=== PATIENT | female | born 1975 | race Caucasian/White ===

== ENCOUNTER 2018-07-20 01:12 | Outpatient (CLI) | payer MEDICAID, SELFPAY ==
--- NOTE | 2018-07-20 12:09 | DI.RAD_ITS ---
SYMPTOMS/DIAGNOSIS: THORACIC REGION BACK PAIN, M54.6, LOW BACK PAIN, M54.5 T-SPINE AND LUMBAR SPINE: T-SPINE: The bony structures are normally mineralized. The vertebral bodies are intact. The posterior elements are intact. There is no evidence of gross disc space narrowing. Hypertrophic endplate changes are of mild degree and are most pronounced in the lower dorsal region. The paravertebral soft tissues are intact. SUMMARY: A mild levorotoscoliotic deformity of the lower dorsal and lumbar spine is identified on the T-spine and LS spine images obtained today. There are mild degenerative changes. Please see the above discussion. LUMBAR SPINE: The vertebral bodies are intact, save for what appears to represent a fracture of the left transverse process of L3, which is of indeterminate age but probably represents an old abnormality. The pedicles, spinous and transverse processes are otherwise unremarkable. There is evidence of facet joint DJD and no evidence of gross disc space narrowing. There is no evidence of spondylolysis or spondylolisthesis. Note is made of a lower dorsal and upper lumbar mild rotoscoliosis. The sacrum and sacroiliac joints are intact. SUMMARY: Mild degenerative changes are identified in this patient with a mild scoliotic deformity. There is a vertical fracture involving the left transverse process of L3, which probably represents an old abnormality; however, the finding is to be correlated with the patient's clinical status.
== END 2018-07-20 01:32 ==
PROVIDERS: PCP Specialist/Technologist Athletic Trainer; Visit Provider Specialist/Technologist Athletic Trainer
DX: M54.6 Pain in thoracic spine (principal); M54.5 Low back pain; M47.815 Spondylosis without myelopathy or radiculopathy, thoracolumbar region; S32.039D Unspecified fracture of third lumbar vertebra, subsequent encounter for fracture with routine healing
CPT/HCPCS: 72072; 72110

== ENCOUNTER 2019-11-21 09:33 | Outpatient (REF) | payer MEDICAID, SELFPAY ==
[2019-11-21 18:39] LABS: WBC Negative HPF (0-5)
[2019-11-21 18:40] LABS: Bacteria Many HPF (Negative); C & S Indicated? No/Sq. Contamination; Casts Negative LPF (Negative); Crystals Negative HPF (Negative); Epithelial Cells Many HPF (Negative); Mucus Negative (Negative); Other Cells Negative (Negative); RBC Negative HPF (0-2)
[2019-11-21 18:45] LABS: BUN 9 mg/dL (7-18); C-Reactive Protein 0.19 mg/dL (0.0-0.3); CREATININE 1.07 mg/dL (0.55-1.02); Chloride 105 mmol/L (98-107); Estimated GFR 55.45 (mL/min/1.73m2); Glucose 99 mg/dL (74-106); Potassium 4.3 mmol/L (3.5-5.1); Sodium 139 mmol/L (136-145)
[2019-11-21 19:16] LABS: ESR 7 mm/hr (0-20)
[2019-11-21 19:17] LABS: Calculated LDL 107 mg/dL (<100); Cholesterol 166 mg/dL (<200); HDL Cholesterol 51 mg/dL (40-60); Triglyceride 43 mg/dL (<150)
== END 2019-11-21 09:53 ==
LOC: NCHCN 09:33
PROVIDERS: PCP Specialist/Technologist Athletic Trainer; Visit Provider Nurse Practitioner Family
DX: R35.0 Frequency of micturition (principal); Z13.220 Encounter for screening for lipoid disorders; Z13.228 Encounter for screening for other metabolic disorders; Z00.00 Encounter for general adult medical examination without abnormal findings
CPT/HCPCS: 80048; 80061; 85652; 81015; 86140

== ENCOUNTER 2020-10-30 11:07 | Outpatient (REF) | payer MEDICAID, SELFPAY ==
[2020-10-31 16:28] LABS: COVID-19 RT-PCR UVMMC Result Negative (Negative)
== END 2020-10-30 11:08 | disposition home or self-care (01) ==
LOC: LBN 11:07
PROVIDERS: PCP Nurse Practitioner Family; Visit Provider Physician Assistant
DX: Z20.822 Contact with and (suspected) exposure to COVID-19 (principal); J06.9 Acute upper respiratory infection, unspecified
CPT/HCPCS: U0003

== ENCOUNTER 2021-12-22 10:39 | Emergency (ER) | payer MEDICAID, SELFPAY ==
[2021-12-22] VITALS (113 sets, daily range): BP systolic 123–170; BP diastolic 70–110; PULSE 83–122; RESP 9–38; TEMP 37.4; O2SAT 96–100
--- NOTE | 2021-12-22 11:15 | RT.EKG_ITS ---
APPROVED REPORT Exam: Resting ECG Reason for Exam: left arm pain Patient Location: E HR:92 bpm ECG Measurements Heart Rate 92 AXIS VA 155 P 82 QRSd 89 QRS 81 QT 364 T 62 QTc 451 Conclusion Sinus rhythm...normal P axis, V-rate 60- 99 ST elev, probable normal early repol pattern...ST elevation, age<55 sinus rhythm at 92, normal axis, no STEMI, nondiagnostic EKG
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
[2021-12-22 11:32] LABS: Source Nasal/Nares
[2021-12-22 11:35] LABS: Abs Immature Grans 0.02 10^3/uL (0.0-0.06); Absolute Basophil Count 0.04 10^3/uL (0.0-0.2); Absolute Eosinophil Count 0.05 10^3/uL (0.0-0.7); Absolute Monocyte Count 0.51 10^3/uL (0.1-0.8); Absolute Neutrophil Count 5.37 10^3/uL (1.2-6.7); Basophils % 0.5; Eosinophils % 0.6; HGB 13.2 g/dL (11.2-15.7); Immature Grans % 0.2; Lymphocytes % 29.4; MCH 31.7 pg (27.0-33.0); MCHC 33.8 % (32.0-36.0); MCV 94 fL (80-95); MPV 11.1 fL (8.0-11.0); Neutrophils % 63.3; Platelet Count 231 10^3/uL (130-400); RBC 4.17 10^6/uL (3.93-5.22); RDW 13.4 % (11.7-14.6); RDW-SD 45.6 fL; WBC 8.49 10^3/uL (4.4-10.8)
[2021-12-22 11:49] LABS: HCG Qual (Serum) Negative
[2021-12-22 12:00] LABS: ALT 18 U/L (14-59); AST 17 U/L (15-37); Albumin 3.7 g/dL (3.4-5.0); Alkaline Phosphatase 56 U/L (46-116); Anion Gap 9.6 mmol/L (3-11); BUN 9 mg/dL (7-18); Bilirubin, Total 0.6 mg/dL (0.2-1.0); CO2 25.4 mmol/L (21.0-32.0); CREATININE 1.1 mg/dL (0.55-1.02); Calcium 9.2 mg/dL (8.5-10.1); Chloride 104 mmol/L (98-107); Estimated GFR 53.24 (mL/min/1.73m2); Glucose 110 mg/dL (74-106); Magnesium 1.8 mg/dL (1.8-2.4); NT-proBNP 145 pg/mL (<300); Sodium 139 mmol/L (136-145); TSH (W/Ref FT4) 1.82 uIU/mL (0.36-3.74); Total Protein 7.3 g/dL (6.4-8.2); Troponin I < 50 ng/L (<or=60)
--- NOTE | 2021-12-22 12:03 | DI.CT_ITS ---
Exam(s) CT THORAX ABDOMEN CTA EXAM: CT THORAX ABDOMEN CTA CLINICAL HISTORY: left arm pain, general discomfort. TECHNIQUE: Imaging Protocol: Axial CT angiography was performed with multi-slice acquisition and mu lti-planar and/or 3D reconstructions. CONTRAST MATERIAL: Intravenous: Omnipaque 350 Contrast volume:100 ml COMPARISON: CT CHEST ABD PELVIS WITH CONTRAST from 10/24/2015 FINDINGS: CHEST: Pulmonary Arteries: Not well opacified. Tracheobronchial tree: Patent where visualized. Mediastinum and [place]: No dominant adenopathy or fluid collection. Pulmonary parenchyma: Small infiltrate posterior right lower lobe. Pleura: No effusion or pneumothorax. Heart: The heart is not dilated. No coronary artery calcifications are seen. Aorta: Mild dilatation of ascending aorta to 3.7 cm. No evidence of dissection. Minimal atheroscler otic changes. Branch vessels patent. Bones: Old bilateral rib fractures. ABDOMEN: Liver: Normal density. No measurable mass. Portal, Superior Mesenteric, and Splenic Veins: Unremarkable. Gallbladder and Biliary Tract: No radiodense calculus or dilation. Pancreas: Normal density, no abnormal calcifications or inflammatory process. Spleen: Normal. Adrenals: No masses seen. Kidneys: Right kidney normal size, contour and axis. No radiodense stones or obstructive uropathy. No masses seen. Left kidney absent. Abdominal Aorta: Abdominal portion non-dilated. Minimal atherosclerotic changes. Branch vessels chaudhry nt. Bowel: No obstruction or bowel wall thickening. Peritoneal Cavity: No ascites, collection or mesenteric inflammatory response. Lymph Nodes: Within normal limits. Bones: Degenerative changes mainly of the facet joints. Soft Tissues: Unremarkable. IMPRESSION: 1. No evidence of aortic dissection. 2. Small patchy infiltrate posterior right lower lobe. 3. No acute abdominal process. RADIATION DOSE DELIVERED: 486.73mGy.cm Total DLP 486.73mGy.cm Total DLP 486.73mGy.cm Total DLP DATA REPOSITORY: All CT scans at this facility are submitted to the National Radiology Data Registry (NRDR) Dose Index Registry (DIR) with the [employer] [place] ([employer]). RADIATION OPTIMIZATION: All CT scans at this facility use at least one of these dose optimization te chniques: automated exposure control; mA and/or kV adjustment per patient size (includes targeted exa ms where dose is matched to clinical indication); or iterative reconstruction.
[2021-12-22 12:07] LABS: D-Dimer 383 ng/mlFEU (<500)
[2021-12-22 12:25] LABS: COVID-19 PCR Negative (Negative)
[2021-12-22] MEDS: LORazepam 2 MG/ML VIAL 1 MG IVP (13:10)
[2021-12-22 14:16] LABS: Bilirubin Negative (Negative); Blood Negative (Negative); Clarity Sl Cloudy (Clear); Glucose Negative (Negative); Ketones Negative (Negative); Leukocyte Esterase Negative (Negative); Nitrite Negative (Negative); Urobilinogen 0.2 EU/dL (Up TO 0.2); pH 6.5 (5-8)
[2021-12-22 14:35] LABS: Troponin I < 50 ng/L (<or=60)
== END 2021-12-22 15:33 | disposition home or self-care (01) ==
PROVIDERS: Emergency Provider Student in an Organized Health Care Education/Training Program; PCP Nurse Practitioner Family
DX: R07.9 Chest pain, unspecified (principal); M79.602 Pain in left arm; R06.02 Shortness of breath; R60.0 Localized edema
CPT/HCPCS: 36415; 71275; 74175; 80053; 87635; 93005; 96374; 99284; 99285; 81003; 83735; 83880; 84443; 84484; 84703; 85025; 85379; 93010; J2060

== ENCOUNTER 2022-09-29 04:47 | Emergency (ER) | payer MEDICAID, SELFPAY ==
--- NOTE | 2022-09-29 04:45 | DI.RAD_ITS ---
Exam(s) XR HIP LT COMPLETE AP PELVIS EXAM: XR HIP LT COMPLETE AP PELVIS CLINICAL HISTORY: fall, left sided back pain and sacral pain. TECHNIQUE: 2D digital imaging was performed. COMPARISON: CR XR lumbar spine complete from 07/20/2018 FINDINGS: 3 views No evidence of acute pelvic nor hip fracture. Chronic partially healed fracture of the left inferior pubic ramus is noted (2016 injury). Healed left katharine pelvic fractures also noted. No hip fractures . Hip joint spaces appear unremarkable. IMPRESSION: Chronic left katharine pelvic fractures no obvious acute fracture of the pelvis and hips evident. DATA REPOSITORY: RADIATION DOSE DELIVERED:
--- NOTE | 2022-09-29 04:45 | DI.RAD_ITS ---
Exam(s) XR LUMBAR SPINE AP, LAT EXAM: XR LUMBAR SPINE AP, LAT CLINICAL HISTORY: fall, left sided back pain and sacral pain. TECHNIQUE: 2D digital imaging was performed. COMPARISON: No exams were available for comparison FINDINGS: Two views: All no evidence of acute fracture, listhesis, nor obvious pars defects. Findings in the left hemipel vis noted which are related to non acute-chronic fracture (2016). Disc spaces in the lumbosacral spi ne exhibit normal height. No compression fractures. No facet malalignment. Some degenerative quevedo e noted in the facet joints of the lower 2 levels. No obvious sacral fracture. IMPRESSION: As above but no acute fractures evident on these two views. DATA REPOSITORY: RADIATION DOSE DELIVERED:
--- NOTE | 2022-09-29 04:45 | DI.RAD_ITS ---
Exam(s) XR SACRUM COCCYX EXAM: XR SACRUM COCCYX CLINICAL HISTORY: fall, left sided back pain and sacral pain. TECHNIQUE: 2D digital imaging was performed. COMPARISON: CR XR lumbar spine complete from 07/20/2018 CR,XR XR HIP LT COMPLETE AP PELVIS from 09/29/2022 CR,XR XR LUMBAR SPINE AP, LAT from 09/29/2022 FINDINGS: Two views: No evidence of acute sacral fracture. Coccyx is anterior pointing but unchanged from 2018. IMPRESSION: No acute fractures evident. DATA REPOSITORY: RADIATION DOSE DELIVERED:
[2022-09-29 04:52] VITALS: PULSE 111; RESP 20; TEMP 36.5; O2SAT 99
[2022-09-29 04:59] VITALS: BP 164/115
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
[2022-09-29] MEDS: MORPHine 4 MG/ML SYR IM (05:09)
[2022-09-29] MEDS: diazePAM 10 MG/2 ML SYR IM (05:10)
[2022-09-29] MEDS: Lidocaine 5% Patch 1 PATCH TP (05:11)
[2022-09-29 05:29] VITALS: BP 149/91
--- NOTE | 2022-09-29 07:20 | DI.VRAD_ITS ---
PROCEDURE INFORMATION: Exam: XR Left Hip Exam date and time: 09/29/2022 6:15 AM Age: 47 years old Clinical indication: Injury or trauma; Blunt trauma (contusions or hematomas); Hip; Injury date: 09/27/22; Injury details: Fall, left sided back pain and sacral pain TECHNIQUE: Imaging protocol: Radiologic exam of the left hip. Views: 2 or 3 views hip with pelvis when performed. COMPARISON: CT CHEST ABD PELVIS WITH CONTRAST 10/24/2015 7:54 AM FINDINGS: Bones/joints: Unremarkable. No acute fracture. Soft tissues: Unremarkable. IMPRESSION: No acute findings. Dictated and Authenticated by: Cristopher Sotelo MD. Ordering:OTILIO Boyd MD
[2022-09-29] MEDS: HYDROmorphone 2 MG/ML SYR 1 MG IVP (07:24)
[2022-09-29 07:25] VITALS: BP 145/104; PULSE 89; RESP 18; O2SAT 99
--- NOTE | 2022-09-29 07:26 | DI.VRAD_ITS ---
PROCEDURE INFORMATION: Exam: XR Lumbosacral Spine Exam date and time: 09/29/2022 6:11 AM Age: 47 years old Clinical indication: Injury or trauma; Blunt trauma (contusions or hematomas); Injury date: 09/27/22; Injury details: Fall, left sided back pain and sacral pain TECHNIQUE: Imaging protocol: Radiologic exam of the lumbosacral spine. Views: 2 or 3 views. COMPARISON: CR XR lumbar spine complete 07/20/2018 11:49 AM FINDINGS: Bones/joints: Normal. No acute fracture. Normal alignment. Soft tissues: Unremarkable. IMPRESSION: No acute findings. Dictated and Authenticated by: Cristopher Sotelo MD. Ordering:OTILIO Boyd MD
--- NOTE | 2022-09-29 07:27 | DI.VRAD_ITS ---
Addendum created by Cristopher Sotelo MD on 09/29/2022 7:33:12 AM EST: Type 3 coccyx. No radiographic evidence of fracture. The findings were verbally communicated via telephone conference with TRI WRAY at 7:33 AM EST on 09/29/2022. The findings were acknowledged and understood. Initial report created on 09/29/2022 7:26:54 AM EST: PROCEDURE INFORMATION: Exam: XR Sacrum and Coccyx, 2 or More Views Exam date and time: 09/29/2022 6:13 AM Age: 47 years old Clinical indication: Injury or trauma; Blunt trauma (contusions or hematomas); Injury date: 09/27/22; Injury details: Fall, left sided back pain and sacral pain TECHNIQUE: Imaging protocol: XR of the sacrum and coccyx, 2 or more views. COMPARISON: CR XR LUMBAR SPINE AP, LAT 09/29/2022 6:11 AM FINDINGS: Bones/joints: Normal. No acute fracture. Soft tissues: Normal. IMPRESSION: No acute findings. Dictated and Authenticated by: Cristopher Sotelo MD. Ordering:OTILIO Boyd MD
--- NOTE | 2022-09-29 07:34 | DI.CT_ITS ---
Exam(s) CT PELVIC WO EXAM: CT PELVIC WO CLINICAL HISTORY: ATTN sacrum/coccyx, r/o fx. TECHNIQUE: Imaging Protocol: Axial computed tomography images with coronal and sagittal reformatted images were created and reviewed CONTRAST MATERIAL: Intravenous: none Oral: None COMPARISON: CT CHEST ABD PELVIS WITH CONTRAST from 10/24/2015 CR,XR XR HIP LT COMPLETE AP PELVIS from 09/29/2022 FINDING: PELVIS: OSSEOUS: There is a nonacute appearing displaced fracture of the inferior pubic ramus on the left humberto e. This was present on CT scan of October 2015, acute at that time. No acute hip fractures evident. No evidence of acute sacral fracture. No acute coccyx fracture evident. No evidence of intrapelvic hematoma. ANTERIOR ABDOMINAL WALL/GI:No evidence of significant anterior abdominal wall nor inguinal hernia in the pelvis evident.No obvious bowel obstruction. No evidence of appendicitis.No evidence of acute si gmoid diverticulitis.No free fluid in the pelvis. LYMPH NODES: There is no intrapelvic nor inguinal adenopathy. URINARY BLADDER: No calculi nor obvious masses evident REPRODUCTIVE: Uterus is atrophic or surgically absent. No abnormal adnexal masses.. IMPRESSION: 1. Chronic appearing left inferior pubic ramus fracture. No acute fractures identified. 2. No evidence of intrapelvic hematoma. Called by myself to ER physician. RADIATION DOSE DELIVERED: 479.02mGy.cm Total DLP DATA REPOSITORY: All CT scans at this facility are submitted to the National Radiology Data Registry (NRDR) Dose Index Registry (DIR) with the [employer] (A[employer]). RADIATION OPTIMIZATION: All CT scans at this facility use at least one of these dose optimization te chniques: automated exposure control; mA and/or kV adjustment per patient size (includes targeted exa ms where dose is matched to clinical indication); or iterative reconstruction.
--- NOTE | 2022-09-29 07:40 | NUR.NOTE ---
Nursing Note: Pt assisted OOB to BR. Steady gait noted. Will cont to monitor.
[2022-09-29] MEDS: Cyclobenzaprine 10 MG TAB, 3 TABS/BTL PO (08:33)
== END 2022-09-29 08:56 | disposition home or self-care (01) ==
PROVIDERS: Emergency Provider Student in an Organized Health Care Education/Training Program; PCP Nurse Practitioner Family
DX: G89.11 Acute pain due to trauma (principal); M53.3 Sacrococcygeal disorders, not elsewhere classified; M54.50 Low back pain, unspecified; M25.552 Pain in left hip; W00.0XXA Fall on same level due to ice and snow, initial encounter
CPT/HCPCS: 96372; 96374; 99284; 72100; 72192; 72220; 73502; J1170; J2270; J3360

== ENCOUNTER 2023-07-15 22:31 | Outpatient (REF) | payer MEDICAID, SELFPAY ==
[2023-07-15 18:17] LABS: ALT 21 U/L (14-59); AST 15 U/L (15-37); Albumin 3.9 g/dL (3.4-5.0); Alkaline Phosphatase 59 U/L (46-116); Anion Gap 8.3 mmol/L (3-11); BUN 19 mg/dL (7-18); Bilirubin, Total 0.3 mg/dL (0.2-1.0); CO2 28.7 mmol/L (21.0-32.0); CREATININE 1.2 mg/dL (0.55-1.02); Calcium 10.2 mg/dL (8.5-10.1); Calculated LDL 130 mg/dL (<100); Chloride 100 mmol/L (98-107); Cholesterol 231 mg/dL (<200); Estimated GFR 55.49 (mL/min/1.73m2); Glucose 93 mg/dL (74-106); HDL Cholesterol 92 mg/dL (40-60); Potassium 5.1 mmol/L (3.5-5.1); Sodium 137 mmol/L (136-145); Triglyceride 47 mg/dL (<150)
[2023-07-15 18:23] LABS: Hemoglobin A1C 5.3 % (<5.7)
[2023-07-15 20:20] LABS: COMMENT (LAB VIEW ONLY) 56.17 mg/dL; Microalb ug/mg Crea 6.1 ug/mg Cr
== END 2023-07-15 22:32 | disposition home or self-care (01) ==
LOC: NCHCN 22:31
PROVIDERS: PCP Nurse Practitioner Family; Visit Provider Nurse Practitioner Family
DX: I10 Essential (primary) hypertension (principal); R10.9 Unspecified abdominal pain; R79.89 Other specified abnormal findings of blood chemistry; R82.998 Other abnormal findings in urine
CPT/HCPCS: 80053; 80061; 82043; 82570; 83036; 87086

== ENCOUNTER 2023-08-04 10:33 | Outpatient (REF) | payer MEDICAID, SELFPAY ==
[2023-08-04 16:01] LABS: Anion Gap 6.9 mmol/L (3-11); BUN 14 mg/dL (7-18); CO2 28.1 mmol/L (21.0-32.0); CREATININE 1.1 mg/dL (0.55-1.02); Calcium 9.5 mg/dL (8.5-10.1); Chloride 104 mmol/L (98-107); Glucose 95 mg/dL (74-106); Potassium 4.1 mmol/L (3.5-5.1); Sodium 139 mmol/L (136-145)
== END 2023-08-04 10:34 | disposition home or self-care (01) ==
LOC: NCHCN 10:33
PROVIDERS: PCP Nurse Practitioner Family; Visit Provider Nurse Practitioner Family
DX: I10 Essential (primary) hypertension (principal)
CPT/HCPCS: 80048